=== PATIENT | female | born 1990 | race Caucasian/White ===

== ENCOUNTER 2020-03-15 20:14 | Observation (INO) | payer SELFPAY ==
[2020-03-15] MEDS ORDERED: Butorphanol 1 MG/ML SDV IVPUSH PRN (20:34)
[2020-03-15] MEDS ORDERED: Lidocaine 1% 50 ML MDV INJECT PRN (20:34)
[2020-03-15] MEDS ORDERED: Sodium Chloride 0.9% 10 ML Syringe FLUSH PRN (20:34)
[2020-03-15] MEDS ORDERED: Nalbuphine 10 MG/1 ML Vial IVPUSH PRN (20:34)
[2020-03-15] MEDS ORDERED: Sodium Chloride 0.9% 10 ML SDV IV PRN (20:34)
[2020-03-15] MEDS ORDERED: Methylergonovine 0.2 MG/1 ML Amp IM PRN (20:34)
[2020-03-15] MEDS ORDERED: Tranexamic Acid 1,000 MG in Sodium Chloride 0.9% 100 ML IV PRN (20:34)
[2020-03-15] MEDS ORDERED: Terbutaline 1 MG/ML SDV SUBCUT PRN (20:34)
[2020-03-15] MEDS ORDERED: Sodium Chloride 0.9% 2.5 ML Syringe FLUSH PRN (20:34)
[2020-03-15] MEDS ORDERED: Water For Irrigation,Sterile 1,000 ML Container IRR PRN (20:34)
[2020-03-15] MEDS ORDERED: Carboprost Tromethamine 250 MCG/1 ML Amp IM PRN (20:34)
[2020-03-15] MEDS ORDERED: Misoprostol 200 MCG Tab PO PRN (20:34)
[2020-03-15] MEDS ORDERED: Oxytocin/0.9 % Sodium Chloride 30 UNIT/500 ML BAG IV SCH ×2 (20:45)
[2020-03-15] MEDS ORDERED: Lactated Ringers 1,000 ML IV SCH (20:45)
[2020-03-16] MEDS ORDERED: FLU Vacc QS2020-21 36MOS UP/PF 60 MCG/0.5 ML Syringe IM ONE (09:00)
--- NOTE | 2020-03-16 09:24 | HP ---
DATE OF : 1990 PRIMARY CARE PHYSICIAN: None PCP This is an interim update on H and P which was previously performed by Dr. Lloyd. The patient is a 29-year-old female. She presents for induction of labor post dates. She presented to Labor and Delivery. She was daniel irregularly but was uncomfortable with contractions. No loss of fluid. She had been 2 to 3 in the clinic. She changed to 4 cm during observation and, therefore, requested to monitor for labor rather than proceed with induction of labor. During the time of observation, she was found to have a positive COVID PCR. The patient was notified of this. She was placed on appropriate contact and respiratory precautions and was notified that her partner would not be allowed to be present in labor regardless of his COVID status. I presented to discuss the situation with the patient. At this point, she declines induction of labor. I did call the sap administrator cycle consultant, who also discussed with Anna Patel, the director of the unit, who confirmed that the would not be allowed in the room due to her COVID-positive status. I did advocate for the patient and reviewed the situation with the sap administrator cycle consultant; however, the answer was that he could not come in regardless of his COVID status. I reviewed the current CDC guidelines with the sap administrator cycle consultant, and I also reviewed the most recent written visitor guidelines, which do not state that a COVID-positive patient cannot have a support person. Despite all of my efforts, the was not allowed to come in, and the patient requested discharge and requested that her records be sent to [facility]. SHEILA MURPHY /[id number]
== END 2020-03-15 23:30 | disposition home or self-care (01) ==
LOC: MW.OB 20:14
PROVIDERS: ADMIT Obstetrics & Gynecology; ATTEND Obstetrics & Gynecology
DX: O47.1 False labor at or after 37 completed weeks of gestation (principal); O98.513 Other viral diseases complicating pregnancy, third trimester; U07.1 COVID-19
CPT/HCPCS: 36415; 85027; 86592; 86850; 86900; 86901; G0378; U0002